=== PATIENT | female | born 1950 | race Caucasian/White ===

== ENCOUNTER 2019-12-15 09:19 | Inpatient (IN) ==
[2019-12-15] MEDS ORDERED: Acetaminophen 325 MG TABLET PO PRN (15:21)
[2019-12-15] MEDS ORDERED: clonazePAM 1 MG TABLET PO PRN (15:21)
[2019-12-15] MEDS: *HR* HYDROcodone/Acet 5/325 mg TABLET PO PRN (18:10)
[2019-12-15] MEDS: carvediloL 6.25 MG TABLET PO SCH (18:10)
[2019-12-15] MEDS: Ascorbic Acid 500 MG TABLET PO SCH (18:11)
[2019-12-15] MEDS: ESOMEPRAZOLE PO SCH (18:11)
[2019-12-15] MEDS: Aspirin Enteric Coated 81 MG Tablet PO SCH (20:24)
[2019-12-15] MEDS: cloNIDine HCL 0.1 MG TABLET PO SCH (20:24)
[2019-12-16] MEDS: *HR* HYDROcodone/Acet 5/325 mg TABLET PO PRN ×3 (00:10→16:52)
[2019-12-16 05:43] LABS: Basophils % 0.3 %; Eosinophils # 0.3 K/mcL (0.0-0.6); Eosinophils % 4.4 %; Hematocrit 26.7 % (35.3-44.9); Hemoglobin 8.5 g/dL (11.5-15.4); Immature Granulocytes % 0.3 % (0-4); Lymphocytes # 2.2 K/mcL (0.6-4.6); Lymphocytes % 33.2 %; Mean Corpuscular HGB Conc 31.8 g/dL (31.6-35.5); Mean Corpuscular Hemoglobin 27.8 pg (28.0-33.3); Mean Corpuscular Volume 87.3 fL (83.0-100.0); Monocytes # 0.6 K/mcL (0.0-1.3); Monocytes % 8.6 %; Neutrophils # 3.5 K/mcL (1.6-8.9); Platelet Count 271 K/mcL (140-400); Red Blood Count 3.06 M/mcL (3.82-4.97); Red Cell Distribution Width 12.7 % (11.5-14.5); Segmented Neutrophils % 53.2 %; White Blood Count 6.6 K/mcL (4.3-11.1)
[2019-12-16 06:01] LABS: BUN/Creatinine Ratio 21 (6-26); Blood Urea Nitrogen 21 mg/dL (8-23); Calcium 8.7 mg/dL (8.6-10.3); Carbon Dioxide 28 mEq/L (23-29); Chloride 103 mEq/L (98-107); Glucose 130 mg/dL (70-105); Osmolality,Calculated 291 (280-300); Potassium 4.2 mEq/L (3.5-5.1); Sodium 138 mEq/L (136-145); eGFR For African Americans > 60 (> 60); eGFR For Non-African Americans 54 (> 60)
[2019-12-16] MEDS: Ascorbic Acid 500 MG TABLET PO SCH ×2 (07:27→16:45)
[2019-12-16] MEDS: allopurinoL 100 MG TABLET PO SCH (08:37)
[2019-12-16] MEDS: Aspirin Enteric Coated 81 MG Tablet PO SCH ×2 (08:37→20:33)
[2019-12-16] MEDS: *HR* Glimepiride 2 MG TABLET PO SCH (08:37)
[2019-12-16] MEDS: carvediloL 6.25 MG TABLET PO SCH ×2 (08:37→16:52)
[2019-12-16] MEDS ORDERED: Cholecalciferol (D-3) 1,000 UNIT (25MCG) TABLET PO SCH (09:00)
[2019-12-16] MEDS ORDERED: Multivit/Ca/Min/Fe/FA 1 TAB TABLET PO SCH (09:00)
[2019-12-16] MEDS: tiZANidine 4 MG TABLET PO SCH (13:25)
[2019-12-16] MEDS: ESOMEPRAZOLE PO SCH (16:45)
[2019-12-17] MEDS: *HR* HYDROcodone/Acet 5/325 mg TABLET PO PRN ×3 (06:40→21:23)
[2019-12-17] MEDS: cloNIDine HCL 0.1 MG TABLET PO SCH ×2 (07:42→21:23)
[2019-12-17] MEDS: tiZANidine 4 MG TABLET PO SCH (08:16)
[2019-12-17] MEDS: carvediloL 6.25 MG TABLET PO SCH ×2 (08:16→17:26)
[2019-12-17] MEDS: Aspirin Enteric Coated 81 MG Tablet PO SCH ×2 (08:17→21:23)
[2019-12-17] MEDS: allopurinoL 100 MG TABLET PO SCH (08:18)
[2019-12-17] MEDS: *HR* Glimepiride 2 MG TABLET PO SCH (08:18)
[2019-12-17] MEDS: ESOMEPRAZOLE PO SCH (17:26)
[2019-12-18] MEDS: *HR* Glimepiride 2 MG TABLET PO SCH (08:57)
[2019-12-18] MEDS: allopurinoL 100 MG TABLET PO SCH (08:58)
[2019-12-18] MEDS ORDERED: Ergocalciferol (VIT D2) 50,000 UNIT (1.25MG) CAP PO SCH (09:00)
[2019-12-18] MEDS: tiZANidine 4 MG TABLET PO SCH (09:20)
[2019-12-18] MEDS: Aspirin Enteric Coated 81 MG Tablet PO SCH ×2 (09:20→20:09)
[2019-12-18] MEDS: carvediloL 6.25 MG TABLET PO SCH ×2 (09:21→16:45)
[2019-12-18] MEDS: ESOMEPRAZOLE PO SCH (15:39)
[2019-12-18] MEDS: *HR* HYDROcodone/Acet 5/325 mg TABLET PO PRN (15:40)
[2019-12-18] MEDS: cloNIDine HCL 0.1 MG TABLET PO SCH (20:09)
[2019-12-19] MEDS: *HR* HYDROcodone/Acet 5/325 mg TABLET PO PRN ×2 (01:47→08:05)
[2019-12-19 04:48] LABS: Basophils % 0.5 %; Eosinophils # 0.3 K/mcL (0.0-0.6); Hematocrit 27.5 % (35.3-44.9); Hemoglobin 8.7 g/dL (11.5-15.4); Immature Granulocytes % 0.5 % (0-4); Lymphocytes % 30.5 %; Mean Corpuscular HGB Conc 31.6 g/dL (31.6-35.5); Mean Corpuscular Hemoglobin 27.9 pg (28.0-33.3); Mean Corpuscular Volume 88.1 fL (83.0-100.0); Mean Platelet Volume 9.3 fL (9.4-12.4); Monocytes # 0.5 K/mcL (0.0-1.3); Monocytes % 7.2 %; Neutrophils # 3.7 K/mcL (1.6-8.9); Platelet Count 309 K/mcL (140-400); Red Blood Count 3.12 M/mcL (3.82-4.97); Red Cell Distribution Width 12.8 % (11.5-14.5); Segmented Neutrophils % 57.3 %; White Blood Count 6.5 K/mcL (4.3-11.1)
[2019-12-19 07:11] VITALS: BP 121/71
[2019-12-19] MEDS: *HR* Glimepiride 2 MG TABLET PO SCH (08:04)
[2019-12-19] MEDS: allopurinoL 100 MG TABLET PO SCH (08:04)
[2019-12-19] MEDS: Aspirin Enteric Coated 81 MG Tablet PO SCH (08:06)
[2019-12-19] MEDS: tiZANidine 4 MG TABLET PO SCH (08:06)
[2019-12-19] MEDS: carvediloL 6.25 MG TABLET PO SCH (08:06)
== END 2019-12-19 10:38 | disposition home or self-care (01) | DRG 560 ==
LOC: INPGRE 14:16
PROVIDERS: ADMIT Family Medicine; ATTEND Family Medicine